=== PATIENT | female | born 1945 | race African-American/Black ===

== ENCOUNTER 2022-07-12 14:59 | Emergency (ER) | payer BC ==
[~2022-07-12] VITALS: Ht 165.1 cm; Wt 61.0 kg
[2022-07-12] MEDS ORDERED: CALCIUM GLUCONATE 100MG/ML 10ML VIAL IV ONE (15:30)
[2022-07-12] MEDS ORDERED: SODIUM CHLORIDE 0.9% 500 ML IV ONE ×2 (15:30→18:45)
[2022-07-12 15:41] LABS: BG BASE EXCESS 2.5 mmol/L (-2.0-2.0); BG CARBOXYHEMOGLOBIN 0.9 % (0.5-1.5); BG DEOXYHEMOGLOBIN 5.4 % (0.0-5.0); BG HCO3 ACT 28.2 mmol/L (22.0-26.0); BG METHEMOGLOBIN 0.3 % (0.0-1.5); BG OXYGEN SATURATION 94.5 % (92.0-98.5); BG OXYHEMOGLOBIN 93.4 % (94.0-97.0); BG PCO2 50.2 mmHg (35.0-45.0); BG PH 7.367 (7.350-7.450); BG PO2 77.2 mmHg (75.0-100.0); BG SAMPLE SITE RIGHT BRACHIAL; BG TOTAL HEMOGLOBIN 7.5 g/dL (12.0-18.0); BG VENT MODE ROOM AIR
[2022-07-12] MEDS ORDERED: CEFTRIAXONE 2 G PREMIX 50 ML IV ONE (15:45)
[2022-07-12 15:57] LABS: HEMATOCRIT. 23.8 % (36.0-48.0); HEMOGLOBIN. 7.7 g/dL (12.0-16.0); MEAN CORPUSCULAR HEMOGLOBIN 29.2 pg (28.0-32.0); MEAN CORPUSCULAR VOLUME 90.4 fL (81.0-99.0); MEAN PLATELET VOLUME 7.3 fl (7.4-10.4); PLATELET 419 x1000/uL (130-400); RED BLOOD CELL COUNT 2.63 mill/uL (4.2-5.4); RED CELL DISTRIBUTION WIDTH 15.5 % (11.6-14.6)
[2022-07-12 15:59] LABS: CHLORIDE 93 mEq/L (98-107)
[2022-07-12] MEDS ORDERED: CEFTRIAXONE 2 G in DEXTROSE 5% WATER 50 ML IV SCH (16:00)
[2022-07-12 16:59] LABS: PLATELET ESTIMATE INCREASED
[2022-07-12] MEDS: VANCOMYCIN 1GM PMX (XELLIA) 200 ML IV SCH ×3 (17:15→18:39)
[2022-07-12 18:59] VITALS: BP 118/33
== END 2022-07-12 22:10 | disposition left against medical advice (07) ==
LOC: ER 14:59 → CANBEDREQ 23:21
DX: A41.9 Sepsis, unspecified organism (principal); R65.20 Severe sepsis without septic shock; I95.9 Hypotension, unspecified
CPT/HCPCS: 36415; 36600; 80053; 82375; 82805; 83605; 83690; 84145; 84484; 85025; 87040; 96361; 96365; 96375; 99291; J0610; J0696; J3370; J7040; J7060